=== PATIENT | male | born 1950 | race Caucasian/White ===

== ENCOUNTER → 2021-08-12 | Outpatient (CLI) | payer MEDICARE ==
[~2021-08-12] MED LIST: CARVEDILOL12.5 MG; CENTRUM SILVER1 EAC4; CO Q-10200 MG; COREG6.25 MG; COZAAR 50 MG TA50 MG PO; COZAAR100 MG; FLUZONE 2045 MCG/011; KRILL OIL 5001 EACH; LO-DOSE ASPIRIN81 M1 PO; NITROSTAT0.3 MG SL; OSTEO BI-FLEX1 EAC1; PLAVIX 75 MG TA75 MG PO; PNEUMOVAX25 MCG/0.5; TOPROL XL100 MG PO; VIAGRA25 MG; ZOCOR 20 MG TAB20 M1 PO
== END ==
LOC: M.LAB 08:58
PROVIDERS: ATTEND Internal Medicine Gastroenterology
DX: Z01.812 Encounter for preprocedural laboratory examination (principal); Z20.822 Contact with and (suspected) exposure to COVID-19

== ENCOUNTER → 2021-11-18 | Outpatient (CLI) | payer MEDICARE | LOC: M.LAB 10:02 | PROVIDERS: ATTEND Internal Medicine Gastroenterology | DX: Z01.812 Encounter for preprocedural laboratory examination (principal); Z20.822 Contact with and (suspected) exposure to COVID-19 ==